=== PATIENT | female | born 1970 | race Caucasian/White ===

== ENCOUNTER 2018-09-11 09:27 | Day surgery (SDC) | payer OTHER, BC ==
[~2018-09-11 09:27] MED LIST: CLINDAMYCIN PHOS/D5W 900MG 900 MG/50 ML BAG IVPB ONE
[2018-09-11] MEDS ORDERED: BUPIVACAINE 0.25% MPF 30ML VIAL IVP ONE (09:28)
[2018-09-11] MEDS ORDERED: PROPOFOL 10 MG/ML VIAL IV ONE (09:28)
[2018-09-11] MEDS ORDERED: FENTANYL PF 100MCG/2ML VIAL IV ONE (09:28)
[2018-09-11] MEDS ORDERED: LIDOCAINE 2% MDV (20MG/ML) 20ML VIAL IV ONE (09:28)
[2018-09-11] MEDS ORDERED: DEXAMETHASONE 4 MG/ML 1ML VIAL IVP ONE ×2 (09:28)
[2018-09-11] MEDS ORDERED: SEVOFLURANE 250 ML INH ONE (09:28)
[2018-09-11] MEDS ORDERED: EPHEDRINE SULFATE 50 MG/ML ML IV ONE (09:28)
[2018-09-11] MEDS ORDERED: MIDAZOLAM HCL 2MG/2ML VIAL IV ONE (09:28)
[2018-09-11] MEDS ORDERED: GLYCOPYRROLATE 0.2 MG/ML ML IV ONE (09:28)
[2018-09-11] MEDS ORDERED: ONDANSETRON HCL IV 4 MG/2 ML VIAL IVP ONE (09:28)
[2018-09-11] MEDS ORDERED: BUPIVACAINE LIPOSOME/PF 133MG/10ML VIAL IV ONE (09:28)
[2018-09-11 09:54] LABS: INR 2.2; PROTHROMBIN TIME (PATIENT) 21.6 SECONDS (9.5-12.1)
[2018-09-11] MEDS ORDERED: BUPIVACAINE 0.5% W/EPI MPF 30 ML VIAL SQ ONE (13:58)
[2018-09-11] MEDS ORDERED: MORPHINE SULFATE 5 MG/ML VIAL IM ONE (13:58)
[2018-09-11] MEDS ORDERED: METHYLPREDNISOLONE 40MG/VIAL IU ONE (14:11)
[2018-09-11] MEDS ORDERED: RINGERS SOLUTION,LACTATED 1,000 ML IV ONE (14:58)
[2018-09-11] MEDS ORDERED: HYDROMORPHONE HCL 2 MG/ML VIAL IM ONE (15:14)
[2018-09-11] MEDS ORDERED: FENTANYL PF 100MCG/2ML VIAL IVP PRN (15:14)
[2018-09-11] MEDS ORDERED: HYDROCODONE/APAP 7.5/325MG TABLET PO ONE (15:51)
--- NOTE | 2018-09-12 08:31 | Operative Note ---
DATE OF SURGERY: 09/11/2018 PREOPERATIVE DIAGNOSIS: Right shoulder impingement. POSTOPERATIVE DIAGNOSES: 1. Complex glenohumeral labral tear superiorly. 2. Profound external impingement, right shoulder. 3. Arthrosis right distal clavicle. 4. Adhesive capsulitis, right shoulder. OPERATION: 1. Right shoulder arthroscopy with intraarticular debridement. 2. Right shoulder open acromioplasty, CA ligament resection with subacromial bursectomy. 3. Right shoulder distal clavicle resection. 4. Right shoulder manipulation under anesthesia. STAFF SURGEON: Cleveland Valdes MD ANESTHESIA: General. PREPARATION: Chloraprep. INDIVIDUAL CONSIDERATIONS: None. PROCEDURE: The patient was taken to the operating room and placed supine on the operating room table. She had a successful induction with general anesthetic. After this, she was placed in a semi-seated beach chair position. I went ahead and manipulated her shoulder. She had an end point at about 120 degrees of abduction. I brought her to full abduction and rotation with manipulation. She was then prepped and draped in the usual fashion. The patient had posterior portal identified for arthroscopy. Skin was infiltrated with 0.5% Marcaine with epinephrine prior. An 18-gauge spinal needle was placed in the joint, and the joint was inflated with normal saline with a 60-mL syringe. A stab wound was made, and a blunt-tipped trocar for the scope was placed in the joint. The joint was inflated with normal saline. An anterior accessory portal was then made just inferior to the long head of the biceps tendon in a retrograde fashion with a Wissinger kasie, and the joint was irrigated out. The patient had fraying of the superior labrum, which was debrided. The rotator cuff underneath looked contused but otherwise intact. No loose bodies were seen inferiorly. The subscap was also normal, as was the long head. After irrigation, portals were closed with roxane. The patient had an anterior approach to the subacromial space and distal clavicle. Skin was again infiltrated with 0.5% Marcaine with epinephrine prior. Sharp dissection carried down through skin and subcutaneous tissues. Small veins were coagulated with a Bovie. An anterior deltoid interval was developed. Care was taken not to split the deltoid more than about 4 cm distal to the anterior tip of the acromion to prevent injury to the axillary nerve. Once in the subacromial space, it was very thickened with bursa. There was anterior spurring of the acromion and distal clavicle. The deltoid was then taken subperiosteally off the anterior aspect of the acromion, over the top of the intact CA ligament, and off the anterior aspect of the degenerated distal clavicle. CA ligament was resected with a Bovie. Distal clavicle was resected with an oscillating saw taking about 6 mm. An anterior acromioplasty was performed. She had a hook spur anteriorly, about 7-8 mm was taken tapering towards posteromedially to include the spurs at the AC joint. The undersurface was then smoothed off with a rasp. A very thick bursa was debrided out. The patient's rotator cuff looked intact but where the spur was digging into the supraspinatus, it was obviously contused but nothing to repair. After thorough irrigation, the deltoid was reattached to the remaining acromion with multiple #2 going directly through the bony acromion. The periosteal cuff of the distal clavicle was closed with running #2 Vicryl. Anterior deltoid interval was closed with running 0 Vicryl. Subcu was closed in layers with 2-0 plus Vicryl and skin was closed with running 3-0 quill. The patient did have a 22-gauge spinal needle placed within the joint, and the joint was injected with 4 mL of 0.5% Marcaine with epinephrine along with 40 mg of Depo-Medrol. The subacromial space had an 18-gauge spinal needle placed and was infiltrated with 10 mg of morphine and 10 mL of 0.5% Marcaine with epinephrine along with 40 mg of Depo-Medrol. The patient tolerated the procedure well. Needle and sponge counts were correct. Estimated blood loss was minimal. He was taken back to recovery in good condition. There were no complications. YOLANDA
== END 2018-09-11 16:33 | disposition home or self-care (01) ==
LOC: SUR 09:27
PROVIDERS: ATTEND Orthopaedic Surgery
DX: S43.431A Superior glenoid labrum lesion of right shoulder, initial encounter (principal); M75.01 Adhesive capsulitis of right shoulder; M19.011 Primary osteoarthritis, right shoulder; I10 Essential (primary) hypertension; Z79.01 Long term (current) use of anticoagulants; G47.33 Obstructive sleep apnea (adult) (pediatric); Z86.711 Personal history of pulmonary embolism
CPT/HCPCS: 23130; 23125; 23700; 01630; 64415; 85610; J2405; J3010; J3490; C9290; 76942; J1030; J7120